=== PATIENT | female | born 1990 | race Caucasian/White ===

== ENCOUNTER 2017-10-05 14:38 | Observation (INO) ==
[2017-10-05] MEDS ORDERED: Famotidine 20 MG Tablet PO ONE (15:23)
--- NOTE | 2017-10-05 16:11 | ED ---
History of Present Illness Primary Care Physician: No Primary Care Physician Chief Complaint: cramping and spotting History of Present Illness: Ms. Marmolejo is a 27-year-old at 38/0 week HepC+ and Hx of Heroin IVDU who recently moved from [place] 1 week ago and discharged today from [facility] who complains of cramping and spotting this morning. There has been no vaginal bleeding, or loss of fluid, however, good movement. Patient says she is nauseous and has heartburn as well. He has had heartburn since beginning of her . She denies dysuria or discharge. This is her third with the first 2 being born via ; the first born after induction at 40 weeks and the second at 39 weeks spontaneously. Pt's recent labs here show she has HepC and UDS+ for opioids. She is GBS negative. She was at [facility] going through drug detox to go into [facility] upon delivery. She has been on Subutex, Vistaril and Clonidine. She is allergic to PCN and Sulfa. Denies CP, SOB, N/V/D and DVT pain. Weeks Gestation:: 38 Para: 2 : 3 - Inpatient Certification If this patient has been admitted as an Inpatient: I certify that the inpatient services were ordered in accordance with Medicare regulations governing the order. This includes certification that hospital inpatient services are reasonable and necessary and in the case of services not specified as inpatient-only under 42 CFR 419.22(n), that they are appropriately provided as inpatient services in accordance to with the 2-midnight benchmark under 43 CFR 412.3(e) Review of Systems Constitutional: Denies chills, Denies fever(s), Denies headache(s) Eyes: Denies change in vision Cardiovascular: Denies chest pain, Denies shortness of breath Respiratory: Denies shortness of breath Gastrointestinal: Reports nausea, Denies loose stools, Denies vomiting Genitourinary: Reports abnormal vaginal bleeding, Reports pelvic pain (cramping) , Denies vaginal discharge Musculoskeletal: Reports back pain Skin/Breast: Denies lesions, Denies rash Neurologic: Denies headache(s) PMFSH - Medical History Medical History: Medical History (Last Updated 10/05/17 @ 16:04 by Sameer Tejeda III, MD, R2) Heartburn during Hepatitis C IVDU (intravenous drug user) [place] teeth extracted - Tobacco History Second Hand Smoke Exposure: Yes Smoking Status: Smoker, status unknown - Alcohol History How Often Do You Have a Drink Containing Alcohol: Unable to Obtain - Substance Use History Substance History: Active Abuse (Heroin use in remission) - Travel History History of Recent Travel: Yes (Patient just moved here from [facility] ) Recent Travel in the [facility] Within the Last 8 Weeks: Yes Recent Travel Out of the Country Within the Last 8 Weeks: No Medications and Allergies Active Medications: Active Medications Ondansetron HCl (Zofran Odt) 4 mg PO ONCE ONE Stop: 10/05/17 15:25 Ranitidine HCl (Zantac Liq) 150 mg PO ONCE ONE Stop: 10/05/17 15:24 Allergies Allergy/AdvReac Type Severity Reaction Status Date / Time ibuprofen Allergy Severe Hives Verified 10/02/17 17:31 lorazepam [From Ativan] Allergy Severe Hives Verified 10/02/17 17:31 Penicillins Allergy Severe Hives Verified 10/02/17 17:30 Sulfa (Sulfonamide Allergy Severe Hives Verified 10/02/17 17:31 Antibiotics) Home Medications Medication Instructions Recorded Confirmed Type acetaminophen [Tylenol] 650 mg PO Q4H PRN 10/05/17 10/05/17 History buprenorphine HCl 4 mg SUBLINGUAL QPM 10/05/17 10/05/17 History buprenorphine HCl 8 mg PO QAM 10/05/17 10/05/17 History clonidine HCl 0.1 mg PO Q4H PRN 10/05/17 10/05/17 History hydroxyzine pamoate [Vistaril] 50 mg PO QID PRN 10/05/17 10/05/17 History Exam Vital signs: Vital Signs 10/05/17 14:44 Temperature 97.5 F L Pulse Rate 69 Respiratory Rate 18 Blood Pressure 115/77 Intake & Output 10/04/17 10/05/17 10/05/17 18:59 06:59 18:59 Weight 73.936 kg Narrative: GENERAL: Well-nourished, well-developed patient. SKIN: Warm and dry. HEAD: Normocephalic and atraumatic. EYES: No scleral icterus. No injection or drainage. ENT: No nasal drainage noted. Mucous membranes pink. Airway patent. NECK: Supple, trachea midline. No JVD. CARDIOVASCULAR: Regular rate and rhythm without murmurs, gallops, or rubs. RESPIRATORY: Breath sounds equal bilaterally. No accessory muscle use. ABDOMEN/GI: Abdomen soft, gravid, non-tender, bowel sounds present, no rebound, no guarding GENITOURINARY: External Genitalia: intact and normal in appearance On speculum exam, there is no blood visualized in the vaginal. All features are normal in appearance. Cervix: open, posterior Dilatation: 1 Effacement: 20-30 Station: -3 Presentation: vtx Membranes: intact Uterine Contractions: absent FHT's: Category: 1 Baseline: 125-130 Reactive: yes Variability: moderate Decels: absent EXTREMITIES: No cyanosis or edema. BACK: Nontender without obvious deformity. No CVA tenderness. NEUROLOGICAL: Awake and alert. Motor and sensory grossly within normal limits. Five out of 5 muscle strength in all muscle groups. Normal speech. Assessment and Plan - Diagnosis (1) 38 weeks gestation of Code(s): Z3A.38 - 38 weeks gestation of Status: Acute Plan: 27-year-old at 38/0 weeks with Hx of HepC+ and Heroin IVDU in detox at [facility] on Subutex, Clonidine and Vistaril with little cervical change since visit to OB ED yesterday. Cervix 04/10-/-3. FHT with Cat 1 strip, BL 125- 130, reactive, moderate, and no decels. Normal at 38 weeks gestation. 1. IUP at 38 weeks -Monitor and toco -Zofran 4mg PO once for nausea -Zantac 150mg PO once for heartburn -UA with sediment, sent for cx Dispo: discharge home Pt SDW Chelita Austin and Ashok Discharge Plan - Discharge Disposition Patient Disposition: 01 Discharge Home - Discharge Condition Condition: Stable - Discharge Order Discharge Orders: Discharge Order (Routine); Ordered 10/05/17 Ordered By: Sameer Tejeda III - Discharge Details Anticipated Discharge Date: 10/05/17 - Physicians Team ED Provider: Mannie Austin Primary Care Provider: Primary Care Gail Ansari - Rxs /Orders / Referrals /Forms Prescriptions: Continue acetaminophen [Tylenol] 325 mg Tablet 650 mg PO Q4H PRN (Reason: Pain) buprenorphine HCl 8 mg Tablet, Sublingual 8 mg PO QAM buprenorphine HCl 8 mg Tablet, Sublingual 4 mg SUBLINGUAL QPM clonidine HCl 0.1 mg Tablet 0.1 mg PO Q4H PRN (Reason: Anxiety) hydroxyzine pamoate [Vistaril] 50 mg Capsule 50 mg PO QID PRN (Reason: Anxiety) Referrals: Primary Care Gail Ansari [Primary Care Provider] - See Instructions - Discharge Instructions Print Language: Azerbaijani
[2017-10-05] MEDS ORDERED: Zolpidem Tartrate 5 MG Tablet PO PRN (18:46)
--- NOTE | 2017-10-05 19:05 | P.HPOB ---
History of Present Illness Primary Care Physician: No Primary Care Physician Chief Complaint: Decreased movement; no care; in withdrawal-sent from [facility] History of Present Illness: 27 yo dwf who reports that she is 38 weeks from hospital visits in [place] (essentially no care) transported here by [facility] after determined to be outside their scope of care. I was called by Marizol at [facility] stating she needed help because [place] was discharging the patient and she had no where to go. She described patient had presented at [facility] to detox in late third trimester from heroin and they had started her on subutex after an evaluation here on 10/02 for " viability" She had been cramping for several days and they became concerned and sent her to the [facility]. She was evaluated here by Dr. Austin to rule out labor and I was consulted prior to leaving the unit regarding her outpatient care. I came in to evaluate her. She is an alert, pleasant and articulate woman who appears to be comfortable. A brief COWS scoring indicates less than 10. However she is not feeling good movement and is concerned. Her cervix is reported as 1-2 cm. She has a strip that is reassuring with good BTBV and accels and no decels. She is not johana consistently. Her last subutex was 8 mg this am at [facility] and then the 8 mg I gave at 6 pm. She is on no other medications except PNV. She denies JACK, N,V, blurred vision or RUQT. She denies leaking or bleeding. Her labs from 10/02 indicate she is GBS negative. GC, chlamydia neg. Hep C+ and Hep B/HIV neg. Her last heroin was wednesday. It was brought with her from [place]. She has not used in the [facility] area. She does not smoke nicotine or THC. She does not do any other illicit substances. She does not drink. She denies any prior diagnosis of depression, BPD, schizoaffective disorder. She has no other chronic or system diseases. She has never had sepsis, endocarditis, joint or lung infections to her knowledge. She has not had boils. She uses same vein in right axilla for several years. Weeks Gestation:: 38 Para: 2 : 3 - Inpatient Certification If this patient has been admitted as an Inpatient: I certify that the inpatient services were ordered in accordance with Medicare regulations governing the order. This includes certification that hospital inpatient services are reasonable and necessary and in the case of services not specified as inpatient-only under 42 CFR 419.22(n), that they are appropriately provided as inpatient services in accordance to with the 2-midnight benchmark under 43 CFR 412.3(e) Review of Systems All other systems reviewed negative except as stated in HPI PMFSH - History History Provided By: Patient - Medical / Surgical Hx Neg / Unobtainable Medical Problems Denied: Yes Surgical History: No Previous Surgery - Medical History Medical History: Medical History (Last Updated 10/05/17 @ 16:04 by Sameer Tejeda III, MD, R2) Heartburn during Hepatitis C IVDU (intravenous drug user) [place] teeth extracted - Tobacco History Second Hand Smoke Exposure: Yes Smoking Status: Never smoker - Alcohol History How Often Do You Have a Drink Containing Alcohol: Unable to Obtain - Substance Use History Substance History: Active Abuse (Heroin use in remission) - Travel History History of Recent Travel: Yes (Patient just moved here from [facility] ) Recent Travel in the [facility] Within the Last 8 Weeks: No Recent Travel Out of the Country Within the Last 8 Weeks: No Medications and Allergies Active Medications: Active Medications Buprenorphine HCl (Sublingual) 8 mg SL Q12H ALVERTO Vit/Calcium/Iron/Folic Ac (Stuartnatal Plus 3) 1 tab PO DAILY ALVERTO Sodium Chloride (Ns Flush) 2 ml IV.FLUSH BID ALVERTO Sodium Chloride (Ns Flush) 2 ml IV.FLUSH PRN PRN PRN Reason: FLUSH AFTER USING IV ACCESS Zolpidem Tartrate (Ambien) 5 mg PO HS PRN PRN Reason: SLEEP Allergies Allergy/AdvReac Type Severity Reaction Status Date / Time ibuprofen Allergy Severe Hives Verified 10/02/17 17:31 lorazepam [From Ativan] Allergy Severe Hives Verified 10/02/17 17:31 Penicillins Allergy Severe Hives Verified 10/02/17 17:30 Sulfa (Sulfonamide Allergy Severe Hives Verified 10/02/17 17:31 Antibiotics) Home Medications Medication Instructions Recorded Confirmed Type acetaminophen [Tylenol] 650 mg PO Q4H PRN 10/05/17 10/05/17 History buprenorphine HCl 4 mg SUBLINGUAL QPM 10/05/17 10/05/17 History buprenorphine HCl 8 mg PO QAM 10/05/17 10/05/17 History clonidine HCl 0.1 mg PO Q4H PRN 10/05/17 10/05/17 History hydroxyzine pamoate [Vistaril] 50 mg PO QID PRN 10/05/17 10/05/17 History Exam Vital signs: Vital Signs 10/05/17 14:44 Temperature 97.5 F L Pulse Rate 69 Respiratory Rate 18 Blood Pressure 115/77 Intake & Output 10/04/17 10/05/17 10/05/17 18:59 06:59 18:59 Weight 73.936 kg - Constitutional no acute distress - Routine HEENT Exam Head: Present: normocephalic Eye: Present: PERRL, normal accommodation - Routine Neck Exam Present: supple - Routine Chest/Breast/Axilla Exam Axillae: Present: lymphadenopathy - Routine Cardiovascular Exam Present: RRR - Routine Abdominal Exam Present: soft Caprini VTE Risk Assessment Caprini VTE Risk Assessment: No/Low Risk (score <= 1) Caprini Risk Assessment Model: Point Value = 1 Point Value = 2 Point Value = 3 Point Value = 5 Age 41-60 Minor surgery BMI > 25 kg/m2 Swollen legs Varicose veins or History of unexplained or recurrent spontaneous Oral contraceptives or hormone replacement Sepsis (< 1 month) Serious lung disease, including pneumonia (< 1 month) Abnormal pulmonary function Acute myocardial infarction Congestive heart failure (< 1 month) History of inflammatory bowel disease Medical patient at bed rest Age 61-74 Arthroscopic surgery Major open surgery (> 45 min) Laparoscopic surgery (> 45 min) Malignancy Confined to bed (> 72 hours) Immobilizing plaster cast Central venous access Age >= 75 History of VTE Family history of VTE Factor V Leiden Prothrombin [id number] Lupus anticoagulant Anticardiolipin antibodies Elevated serum homocysteine Heparin-induced thrombocytopenia Other congenital or acquired thrombophilia Stroke (< 1 month) Elective arthroplasty Hip, pelvis, or leg fracture Acute spinal cord injury (< 1 month) Prophylaxis Regimen: Total Risk Factor Score Risk Level Prophylaxis Regimen 0-1 Low Early ambulation 2 Moderate Order ONE of the following: *Sequential Compression Device (SCD) *Heparin 5000 units SQ BID 3-4 Higher Order ONE of the following medications: *Heparin 5000 units SQ TID *Enoxaparin/Lovenox 40 mg SQ daily (WT < 150 kg, CrCl > 30 mL/min) *Enoxaparin/Lovenox 30 mg SQ daily (WT < 150 kg, CrCl > 10-29 mL/min) *Enoxaparin/Lovenox 30 mg SQ BID (WT < 150 kg, CrCl > 30 mL/min) AND/OR *Sequential Compression Device (SCD) 5 or more Highest Order ONE of the following medications: *Heparin 5000 units SQ TID (Preferred with Epidurals) *Enoxaparin/Lovenox 40 mg SQ daily (WT < 150 kg, CrCl > 30 mL/min) *Enoxaparin/Lovenox 30 mg SQ daily (WT < 150 kg, CrCl > 10-29 mL/min) *Enoxaparin/Lovenox 30 mg SQ BID (WT < 150 kg, CrCl > 30 mL/min) AND *Sequential Compression Device (SCD) Assessment and Plan - Diagnosis (1) Third trimester Code(s): Z34.93 - Encounter for supervision of normal , unspecified, third trimester Status: Acute (2) Substance abuse affecting in third trimester, antepartum Code(s): O99.323 - Drug use complicating , third trimester Status: Acute (3) Decreased movement during in third trimester, antepartum Code(s): O36.8130 - Decreased movements, third trimester, not applicable or unspecified Status: Acute - Plan Needs a biophysical profile and weight as dates are truly unkown. Would normally induce at 38 weeks for opioid use disorder and risk reduction but with no dates, need further evaluation will maintain subutex at 8 mg BID when discharged tomorrow IF surveillance reassuring, will have come directly to my office to have contracts crispin for opioid use disorder and MAT
[2017-10-05 20:11] LABS: Baso # (Auto) 0.1 th/mm3 (0.0-0.2); Baso % (Auto) 0.8 % (0.0-2.0); Eos # (Auto) 0.1 th/mm3 (0.0-0.4); Eos % (Auto) 0.8 % (0.0-4.0); Hematocrit 37.1 % (35.0-46.0); Hemoglobin 12.6 gm/dL (11.6-15.3); Lymph # (Auto) 1.8 th/mm3 (1.0-4.8); Lymph % (Auto) 20.3 % (9.0-44.0); Mean Corpuscular HGB Conc 33.8 % (32.0-36.0); Mean Corpuscular Hemoglobin 29.9 pg (27.0-34.0); Mean Corpuscular Volume 88.4 fL (80.0-100.0); Mean Platelet Volume 8.3 fL (7.0-11.0); Mono # (Auto) 0.6 th/mm3 (0.0-0.9); Mono % (Auto) 6.7 % (0.0-8.0); Neut # (Auto) 6.2 th/mm3 (1.8-7.7); Neut % (Auto) 71.4 % (16.0-70.0); Platelet Count 380 th/mm3 (150-450); Red Cell Distribution Width 14.4 % (11.6-17.2); White Blood Count 8.7 th/mm3 (4.0-11.0)
[2017-10-05 21:22] LABS: Bilirubin,Urine Negative (Negative); Clarity,Urine Clear (Clear); Color,Urine Yellow (Yellw/Straw); Glucose,Urine (UA) Negative (Negative); Leukocyte Esterase,Urine Small (Negative); Nitrite,Urine Negative (Negative); Specific Gravity,Urine 1.011 (1.002-1.035); Squamous Epithelial Cell,Urine 1 /hpf (0-5)
[2017-10-06] MEDS ORDERED: Prenatal Vit/Ca/Iron/Folic Acid Tablet PO SCH (09:00)
== END 2017-10-06 12:17 | disposition home or self-care (01) ==
LOC: H2E 14:38 → HOBED 14:38
PROVIDERS: ADMIT Obstetrics & Gynecology; ATTEND Obstetrics & Gynecology

== ENCOUNTER 2017-10-12 00:29 | Inpatient (IN) ==
[2017-10-12] MEDS ORDERED: Naloxone Inj 0.4 MG/ML Vial IV.PUSH PRN ×2 (01:30→11:09)
[2017-10-12] MEDS ORDERED: Oxytocin 30 Units/500ml Premix 30 UNITS/500 ML BAG IV.SIG ONE (01:30)
[2017-10-12] MEDS ORDERED: Sodium Chlor 0.9% Inj 500 ML IV.SIG PRN (01:30)
[2017-10-12] MEDS ORDERED: fentaNYL Citrate Inj 100 MCG/2 ML Ampul IV.PUSH PRN ×2 (01:30)
[2017-10-12] MEDS ORDERED: Citric Acid/Sodium Citrate Liq 30 ML UDC PO SCH (01:30)
[2017-10-12] MEDS ORDERED: Sod Chloride 0.9% Inj 1,000 ML IV.CONT PRN (01:30)
--- NOTE | 2017-10-12 01:30 | ED ---
History of Present Illness Primary Care Physician: No Primary Care Physician Chief Complaint: Contractions History of Present Illness: 27-year-old who is at 39 weeks gestation comes in complaining of contractions. She was checked in the office today and noted to be 5 cm thereafter she had some mild contractions which have worsened within the past 2 hours and she was in [place] and was worried about getting to the hospital on time. Patient is group B strep negative. She is presently [facility] and is on Subutex 4 mg 3 times a day. Patient states she has no other antepartum complications and had 2 prior uncomplicated spontaneous vaginal deliveries. Weeks Gestation:: 39 Para: 2 : 3 Review of Systems All other systems reviewed negative except as stated in HPI PMFSH - History History Provided By: Patient - Medical History Medical History: Medical History (Last Updated 10/05/17 @ 16:04 by Sameer Tejeda III, MD, R2) Heartburn during Hepatitis C IVDU (intravenous drug user) [place] teeth extracted - Tobacco History Second Hand Smoke Exposure: Yes Smoking Status: Never smoker - Alcohol History How Often Do You Have a Drink Containing Alcohol: Unable to Obtain - Substance Use History Substance History: Active Abuse (Heroin use in remission, opiate abuse presently on Subutex) - Travel History History of Recent Travel: Yes (Patient just moved here from [facility] ) Recent Travel in the [facility] Within the Last 8 Weeks: No Recent Travel Out of the Country Within the Last 8 Weeks: No Medications and Allergies Allergies Allergy/AdvReac Type Severity Reaction Status Date / Time ibuprofen Allergy Severe Hives Verified 10/02/17 17:31 lorazepam [From Ativan] Allergy Severe Hives Verified 10/02/17 17:31 Penicillins Allergy Severe Hives Verified 10/02/17 17:30 Sulfa (Sulfonamide Allergy Severe Hives Verified 10/02/17 17:31 Antibiotics) Home Medications Medication Instructions Recorded Confirmed Type acetaminophen [Tylenol] 650 mg PO Q4H PRN 10/05/17 10/05/17 History buprenorphine HCl 4 mg SUBLINGUAL QPM 10/05/17 10/05/17 History buprenorphine HCl 8 mg PO QAM 10/05/17 10/05/17 History clonidine HCl 0.1 mg PO Q4H PRN 10/05/17 10/05/17 History hydroxyzine pamoate [Vistaril] 50 mg PO QID PRN 10/05/17 10/05/17 History Exam Vital signs: Vital Signs 10/12/17 00:55 10/12/17 01:00 Temperature 98.6 F Pulse Rate 107 H Respiratory Rate 18 Blood Pressure 127/81 Intake & Output 10/11/17 10/11/17 10/12/17 06:59 18:59 06:59 Weight 75 kg Narrative: GENERAL: Well-nourished, well-developed patient. SKIN: Warm and dry. HEAD: Normocephalic and atraumatic. EYES: No scleral icterus. No injection or drainage. ENT: No nasal drainage noted. Mucous membranes pink. Airway patent. NECK: Supple, trachea midline. No JVD. CARDIOVASCULAR: Regular rate and rhythm without murmurs, gallops, or rubs. RESPIRATORY: Breath sounds equal bilaterally. No accessory muscle use. ABDOMEN/GI: Abdomen soft, non-tender, bowel sounds present, no rebound, no guarding Gravid to [-38] weeks size Fundal Height: [-] GENITOURINARY: External Genitalia: intact and normal in appearance BUS glands: [-Normal] Cervix: [-] Posterior Dilatation: [-] 5-6 cm Effacement: [-] 90 Station: [-] -2 Presentation: [-] Vertex intact Membranes: [intact or ruptured] Uterine Contractions: [-] Every 5 minutes FHT's: Category: [-] 1 Baseline: [-] 140 Reactive: [-] Moderate Variability: [-] Moderate Decels: [-] Absent EXTREMITIES: No cyanosis or edema. BACK: Nontender without obvious deformity. No CVA tenderness. NEUROLOGICAL: Awake and alert. Motor and sensory grossly within normal limits. Five out of 5 muscle strength in all muscle groups. Normal speech. Assessment and Plan - Diagnosis (1) 39 weeks gestation of Code(s): Z3A.39 - 39 weeks gestation of Status: Acute (2) Substance abuse affecting in third trimester, antepartum Code(s): O99.323 - Drug use complicating , third trimester Status: Acute (3) Uterine contractions during Code(s): O62.2 - Other uterine inertia Status: Acute Discharge Plan - Discharge Disposition Patient Disposition: 30 Still Patient - Discharge Condition Condition: Good - Physicians Team ED Provider: Ariana Pereira Primary Care Provider: Primary Care Physici,No - Rxs /Orders / Referrals /Forms Prescriptions: No Action acetaminophen [Tylenol] 325 mg Tablet 650 mg PO Q4H PRN (Reason: Pain) buprenorphine HCl 8 mg Tablet, Sublingual 8 mg PO QAM buprenorphine HCl 8 mg Tablet, Sublingual 4 mg SUBLINGUAL QPM clonidine HCl 0.1 mg Tablet 0.1 mg PO Q4H PRN (Reason: Anxiety) hydroxyzine pamoate [Vistaril] 50 mg Capsule 50 mg PO QID PRN (Reason: Anxiety) - Discharge Instructions Print Language: Croatian
[2017-10-12 02:21] LABS: Baso % (Auto) 0.3 % (0.0-2.0); Eos # (Auto) 0.1 th/mm3 (0.0-0.4); Eos % (Auto) 1.1 % (0.0-4.0); Hematocrit 36.6 % (35.0-46.0); Hemoglobin 12.2 gm/dL (11.6-15.3); Lymph # (Auto) 2.1 th/mm3 (1.0-4.8); Lymph % (Auto) 21.5 % (9.0-44.0); Mean Corpuscular HGB Conc 33.4 % (32.0-36.0); Mean Corpuscular Hemoglobin 29.6 pg (27.0-34.0); Mean Corpuscular Volume 88.5 fL (80.0-100.0); Mean Platelet Volume 7.7 fL (7.0-11.0); Mono # (Auto) 0.9 th/mm3 (0.0-0.9); Neut # (Auto) 6.8 th/mm3 (1.8-7.7); Neut % (Auto) 68.1 % (16.0-70.0); Platelet Count 397 th/mm3 (150-450); Red Blood Count 4.13 mil/mm3 (4.00-5.30); Red Cell Distribution Width 14.1 % (11.6-17.2); White Blood Count 9.9 th/mm3 (4.0-11.0)
[2017-10-12 02:24] LABS: Bacteria,Urine Rare /hpf; Bilirubin,Urine Negative (Negative); Clarity,Urine Clear (Clear); Color,Urine Yellow (Yellw/Straw); Glucose,Urine (UA) Negative (Negative); Leukocyte Esterase,Urine Negative (Negative); Mucus,Urine Few /lpf (Occasional); Nitrite,Urine Negative (Negative); Specific Gravity,Urine 1.006 (1.002-1.035)
[2017-10-12 02:29] LABS: Amphetamine Urine With Conf Neg (Neg); Benzodiazepine Urine With Conf Neg (Neg)
[2017-10-12 03:43] LABS: Eosinophils 1 % (0-4); Lymphocytes 29 % (9-44); Monocytes 7 % (0-8); Myelocytes 2 % (0-0); Platelet Estimate Normal (Normal); Platelet Morphology Normal (Normal); RBC Morphology Normal (Normal)
[2017-10-12] MEDS ORDERED: fentaNYL 2MCG-Bupiv 0.125% Epi 150 ML EPIDURAL ONE (07:11)
[2017-10-12] MEDS ORDERED: fentaNYL Citrate Inj 100 MCG/2 ML Ampul EPIDURAL ONE (09:13)
[2017-10-12] MEDS ORDERED: fentaNYL 2MCG-Bupiv 0.125% Epi 150 ML EPIDURAL PRN (09:13)
[2017-10-12] MEDS ORDERED: Ibuprofen 400 MG Tablet PO PRN (11:09)
[2017-10-12] MEDS ORDERED: Bisacodyl 10 MG Supp RECTAL PRN (11:09)
[2017-10-12] MEDS ORDERED: Benzocaine 20% Top Spray 60 ML Can TOPICAL PRN (11:09)
[2017-10-12] MEDS ORDERED: Zolpidem Tartrate 5 MG Tablet PO PRN (11:09)
[2017-10-12] MEDS ORDERED: Witch Hazel 50%/Glyderin 12.5% 40 Pad Jar RECTAL PRN (11:09)
--- NOTE | 2017-10-12 11:09 | P.OBDELI ---
Weeks Gestation: 39 Patient Started Active Labor: Yes Medical Induction of Labor: No Artificial Rupture of Membrane: No Anesthesia: Epidural Episiotomy: none Vaginal Delivery: Normal Presentation: Occiput anterior Nuchal Cord: None Delayed Cord Clamping (45 sec): Yes Placenta: Spontaneous delivery, Intact, 3 vessel cord Laceration: None : Female (9 and 9 weight pending )
[2017-10-12] MEDS ORDERED: Oxytocin 30 Units/500ml Premix 30 UNITS/500 ML BAG IV.CONT SCH (11:15)
[2017-10-12] MEDS: Acetaminophen 325 MG Tablet PO PRN (15:05)
[2017-10-12] MEDS ORDERED: Measles/Mumps/Rubella Vaccine Inj 0.5 ML Vial SQ ONE (16:00)
[2017-10-12] MEDS ORDERED: Diphtheria/Tetanus/Pertussis Vaccine Inj 0.5 ML Syringe IM ONE (16:00)
--- NOTE | 2017-10-13 07:19 | P.PNOB ---
Subjective Post day: 1 Interval history: doing well, minimal cramping, light lochia, tolerating diet, pain well controlled Objective Vital Signs/I&O: Vital Signs 10/12/17 07:35 10/12/17 07:40 10/12/17 07:45 Temperature Pulse Rate 93 H 93 H 101 H Respiratory Rate Blood Pressure 134/70 117/70 121/58 L 10/12/17 07:56 10/12/17 08:00 10/12/17 08:30 Temperature 97.6 F Pulse Rate 102 H 84 92 H Respiratory Rate 18 Blood Pressure 123/73 103/50 L 103/57 L 10/12/17 08:45 10/12/17 09:00 10/12/17 09:30 Temperature Pulse Rate 102 H 96 H 125 H Respiratory Rate Blood Pressure 113/59 L 108/56 L 129/78 10/12/17 09:36 10/12/17 09:53 10/12/17 10:00 Temperature Pulse Rate 107 H 99 H Respiratory Rate 18 18 Blood Pressure 126/63 116/73 10/12/17 10:09 10/12/17 10:16 10/12/17 10:30 Temperature 98.0 F Pulse Rate 92 H 89 Respiratory Rate 18 18 Blood Pressure 121/62 114/72 10/12/17 10:49 10/12/17 10:52 10/12/17 11:15 Temperature Pulse Rate 125 H 86 91 H Respiratory Rate 18 18 Blood Pressure 89/50 L 128/74 125/71 10/12/17 11:45 10/12/17 20:00 Temperature 97.7 F 97.6 F Pulse Rate 99 H 85 Respiratory Rate 18 18 Blood Pressure 123/79 129/84 Intake & Output 10/12/17 10/13/17 10/13/17 18:59 06:59 18:59 Intake Total 1000 / 1000 Balance 1000 / 1000 Intake: IV 1000 / 1000 LR 1000 mL Inj 1,000 ML @ 125 1000 / 1000 mls/hr IV.CONT .Q8H [facility] Rx#: [id number] Result Diagrams: 10/12/17 02:00 Objective Remarks: GENERAL: Well-nourished, well-developed patient. CARDIOVASCULAR: Regular rate and rhythm without murmurs, gallops, or rubs. RESPIRATORY: Breath sounds equal bilaterally. No accessory muscle use. ABDOMEN/GI: Abdomen soft, non-tender. Fundus: Firm, non-tender at umbilicus. GENITOURINARY: Light to moderate bleeding. EXTREMITIES: No cyanosis or edema, non-tender, without signs of DVT. Medications and IVs: Active Medications Acetaminophen (Tylenol) 650 mg PO Q4H PRN PRN Reason: PAIN SCALE 1 TO 2 Last Admin: 10/12/17 15:05 Dose: 650 mg Al Hydroxide/Mg Hydroxide (Milk Of Magnesia Liq) 30 ml PO Q12H PRN PRN Reason: Mild Constipation Benzocaine (Americaine 20% Top [place]) 1 spray TOPICAL Q4H PRN PRN Reason: For Perineum Discomfort Bisacodyl (Dulcolax Supp) 10 mg RECTAL DAILY PRN PRN Reason: SEVERE CONSITIPATION Buprenorphine HCl (Sublingual) 8 mg SL BID [facility] Last Admin: 10/12/17 20:37 Dose: 8 mg Citric Acid/Sodium Citrate (Sodium Citrate/Citric Acid Liq) 30 ml PO SODIUM [employer] [facility] Stop: 10/16/17 01:29 Ephedrine Sulfate (Ephedrine/Ns Syringe) 10 mg IV.PUSH UNSCH PRN PRN Reason: SEE LABEL COMMENTS Stop: 10/13/17 09:13 Fentanyl Citrate (Fentanyl Inj) 50 mcg IV.PUSH Q1H PRN PRN Reason: Pain Scale 3 - 5 Fentanyl Citrate (Fentanyl Inj) 100 mcg IV.PUSH Q1H PRN PRN Reason: PAIN SCALE 6 TO 10 Lactated Ringer's (Lr 1000 Ml Inj) 1,000 mls @ 125 mls/hr IV.CONT .Q8H [facility] Last Admin: 10/12/17 09:37 Dose: 125 mls/hr Lactated Ringer's (Lr 1000 Ml Inj) 1,000 mls @ 3,000 mls/hr IV.SIG UNSCH PRN PRN Reason: compromise or epidural Sodium Chloride (Ns Inj) 500 mls @ 1,000 mls/hr IV.SIG UNSCH PRN PRN Reason: SEE LABEL COMMENTS Sodium Chloride (Ns Inj) 1,000 mls @ 100 mls/hr IV.CONT .Q10H PRN PRN Reason: SEE LABEL COMMENTS Fentanyl/Bupivacaine/Sodium Chlor (Fentanyl 2 Mcg-Bupiv 0.125% Epi) 150 mls @ 12 mls/hr EPIDURAL PRN PRN PRN Reason: for Labor Pain Lactulose (Lactulose Liq) 30 ml PO DAILY PRN PRN Reason: SEVERE CONSITIPATION Lidocaine HCl (Xylocaine 1% Inj) 10 ml INFILTRATN PRN PRN PRN Reason: For episiotomy repair Stop: 10/14/17 01:29 Lidocaine HCl (Xylocaine 1% Inj) 0.1 ml I-DERMAL PRN PRN PRN Reason: For IV start Stop: 10/15/17 01:29 Mineral Oil (Muri-Lube Oil) 10 ml TOPICAL PRN PRN PRN Reason: PRN perineal massage Miscellaneous Information (Misc Information) 1 each OTHER UNSCH PRN PRN Reason: SEE LABEL COMMENTS Stop: 10/13/17 09:13 Miscellaneous Information (Misc Information) 1 each OTHER UNSCH PRN PRN Reason: SEE LABEL COMMENTS Stop: 10/13/17 09:13 Naloxone HCl (Narcan Inj) 0.1 mg IV.PUSH Q2M PRN PRN Reason: for opiate reversal Naloxone HCl (Narcan Inj) 0.1 mg IV.PUSH Q2M PRN PRN Reason: for opiate reversal Ondansetron HCl (Zofran Odt) 4 mg PO Q6H PRN PRN Reason: NAUSEA OR VOMITING Senna/Docusate Sodium (Venita-Colace) 1 tab PO BID [facility] Sennosides (Senokot) 17.2 mg PO Q12H PRN PRN Reason: Moderate Constipation Sodium Chloride (Ns Flush) 2 ml IV.FLUSH BID [facility] Sodium Chloride (Ns Flush) 2 ml IV.FLUSH PRN PRN PRN Reason: FLUSH AFTER USING IV ACCESS Witch Arina/Glycerin (Tucks Pads) 1 applicatio RECTAL QID PRN PRN Reason: HEMORRHOIDS Zolpidem Tartrate (Ambien) 5 mg PO HS PRN PRN Reason: SLEEP Assessment and Plan - Diagnosis (1) (spontaneous vaginal delivery) Code(s): O80 - Encounter for full-term uncomplicated delivery Status: Acute (2) Drug use affecting in third trimester Code(s): O99.323 - Drug use complicating , third trimester Status: Acute - Plan PPD#1 routine supportive care discharge planning to be discussed with Dr. Deepak rodriguez d/c 10/14/17 Discharge Planning: expect 10/14/17
--- NOTE | 2017-10-13 07:37 | P.DS ---
Date of admission: 10/12/17 01:34 Primary care physician: No Primary Care Physician Brief History from admission: 27-year-old 003 who presented in active labor at 39 weeks, she underwent a vaginal delivery, please see H&P and operative report for further details. She was meeting all of her milestones and was discharged on day #2. DS: Summary Hospital Course: See brief history - Time Spent with Patient Total time spent providing and/or coordinating discharge services: Exam Vital signs: Vital Signs 10/12/17 07:40 10/12/17 07:45 10/12/17 07:56 Temperature Pulse Rate 93 H 101 H 102 H Respiratory Rate Blood Pressure 117/70 121/58 L 123/73 10/12/17 08:00 10/12/17 08:30 10/12/17 08:45 Temperature 97.6 F Pulse Rate 84 92 H 102 H Respiratory Rate 18 Blood Pressure 103/50 L 103/57 L 113/59 L 10/12/17 09:00 10/12/17 09:30 10/12/17 09:36 Temperature Pulse Rate 96 H 125 H Respiratory Rate 18 Blood Pressure 108/56 L 129/78 10/12/17 09:53 10/12/17 10:00 10/12/17 10:09 Temperature 98.0 F Pulse Rate 107 H 99 H Respiratory Rate 18 18 Blood Pressure 126/63 116/73 10/12/17 10:16 10/12/17 10:30 10/12/17 10:49 Temperature Pulse Rate 92 H 89 125 H Respiratory Rate 18 18 Blood Pressure 121/62 114/72 89/50 L 10/12/17 10:52 10/12/17 11:15 10/12/17 11:45 Temperature 97.7 F Pulse Rate 86 91 H 99 H Respiratory Rate 18 18 Blood Pressure 128/74 125/71 123/79 10/12/17 20:00 Temperature 97.6 F Pulse Rate 85 Respiratory Rate 18 Blood Pressure 129/84 Intake & Output 10/12/17 10/13/17 10/13/17 18:59 06:59 18:59 Intake Total 1000 / 1000 Balance 1000 / 1000 Intake: IV 1000 / 1000 LR 1000 mL Inj 1,000 ML @ 125 1000 / 1000 mls/hr IV.CONT .Q8H [facility] Rx#: [id number] Results Procedures completed during hospitalization: Discharge Plan - Discharge Disposition Patient Disposition: 01 Discharge Home - Discharge Condition Condition: Good - Discharge Order Discharge Orders: Discharge Order (Routine); Ordered 10/14/17 Ordered By: Derick Teran - Discharge Details Anticipated Discharge Date: 10/14/17 - Physicians Team Primary Care Provider: Primary Care Gail Ansari Attending Provider: Kasia Sotelo
[2017-10-13] MEDS: Acetaminophen 325 MG Tablet PO PRN (07:48)
[2017-10-13 20:29] VITALS: RESP 18
[2017-10-13] MEDS: Senna/Docusate Sodium 8.6/50 MG Tablet PO SCH (22:33)
[2017-10-14] MEDS: Senna/Docusate Sodium 8.6/50 MG Tablet PO SCH (08:14)
[2017-10-14 08:15] VITALS: BP 124/76; PULSE 95; TEMP 98.1
== END 2017-10-14 11:45 | disposition home or self-care (01) ==
LOC: HOBED 00:29 → H2E 01:34 → H1EA 11:31
PROVIDERS: ADMIT Obstetrics & Gynecology; ATTEND Obstetrics & Gynecology